=== PATIENT | male | born 1945 | race Caucasian/White ===

== ENCOUNTER → 2023-06-13 09:11 | Outpatient (REF) | payer MEDICARE, SELFPAY ==
[2023-06-13 10:00] LABS: % Basophils 0.7 % (0-2); % Eosinophils 1.7 % (0-6); % Immature Granulocytes 0.6 % (0-0.5); % Lymphocytes 45.9 % (20.5-51.1); % Monocytes 6.9 % (1.7-9.3); % Neutrophils 44.2 % (42.2-75.2); Absolute Basophils 0.1 10^3/uL (0-0.2); Absolute Eosinophils 0.2 10^3/uL (0-0.7); Absolute Immature Granulocytes 0.1 10^3/uL (0-0.05); Absolute Lymphocytes 4.1 10^3/uL (1.2-3.4); Absolute Monocytes 0.6 10^3/uL (0.1-0.6); Absolute Neutrophils 3.9 10^3/uL (1.4-6.5); Hematocrit 31.8 % (39.0-52.0); Hemoglobin 10.2 g/dL (13.0-18.0); Mean Corp Hgb Conc. 32.1 g/dL (33.0-37.0); Mean Corpuscular Hgb 29.7 pg (27.0-31.0); Mean Corpuscular Volume 92.4 fL (80.0-94.0); Mean Platelet Volume 10.8 fL (7.4-10.4); Nucleated Red Blood Cells % 0 % (-); Platelet Count 179 10^3/uL (130-400); Red Blood Cell Count 3.44 10^6/uL (4.70-6.10); Red Cell Dist. Width 13.9 % (11.5-14.5); White Blood Cell Count 8.9 10^3/uL (4.8-10.8)
[2023-06-13 10:30] LABS: Blood Urea Nitrogen 52 mg/dl (9-20); Calcium 9.7 mg/dl (8.4-10.2); Carbon Dioxide 17 mmol/L (22-30); Chloride 115 mmol/L (98-107); Glucose 108 mg/dl (70-99); Potassium 5.5 mmol/L (3.5-5.1); Sodium 140 mmol/L (135-145); eGFR 21.87
== END ==
LOC: REG 09:11
PROVIDERS: ATTENDING PHYSICIAN Specialist; FAMILY PHYSICIAN Physician Assistant
DX: Z01.818 Encounter for other preprocedural examination (principal)
CPT/HCPCS: 36415; 80048; 85025; 93005

== ENCOUNTER → 2023-06-22 08:39 | Outpatient (REF) | payer MEDICARE, SELFPAY | LOC: RAD 08:39 | PROVIDERS: ATTENDING PHYSICIAN Specialist; FAMILY PHYSICIAN Physician Assistant | DX: N18.4 Chronic kidney disease, stage 4 (severe) (principal) | CPT/HCPCS: 76775 ==

== ENCOUNTER 2023-07-10 06:11 | Day surgery (SDC) | payer MEDICARE, SELFPAY ==
--- NOTE | 2023-07-04 13:36 | CM ---
Patient is scheduled for an elective L THR on 07/10/23- he is a same day patient. Spoke with patient prior to surgery. Introduced role of Orthopedic Navigator. Patient reports that he lives alone. He currently functions independently and uses a cane.
He also has a raised toilet seat, hip kit, firm cushion and rolling walker. He has never had VN services. PCP is Kurt Moore.
Discussed orthopedic program and post surgical plans. Reviewed that he will have VN services initially (medicare.gov website and ratings reviewed) and will then start outpatient PT. Patient selects [facility] (face sheet faxed to [facility] to facilitate
confirmation of benefits) for his home care needs and will go to [facility] for outpatient PT.
Patient is in agreement with plan and states that he will go to his friend, Sima Schmitz's home initially (home is two story with one step to enter and a flight of steps to the second floor).
Patient will complete online education.
Plan: Orthopedic Navigator will remain available to assist with the care of patient and will reassess discharge needs after surgery.
[2023-07-05 13:56] VITALS: BMI 24.4
[2023-07-05 14:17] VITALS: BMI 24.4
[2023-07-05 14:30] LABS: Hematocrit 30.5 % (39.0-52.0); Mean Corp Hgb Conc. 32.8 g/dL (33.0-37.0); Mean Corpuscular Hgb 29.8 pg (27.0-31.0); Mean Corpuscular Volume 90.8 fL (80.0-94.0); Mean Platelet Volume 10.7 fL (7.4-10.4); Platelet Count 170 10^3/uL (130-400); Red Blood Cell Count 3.36 10^6/uL (4.70-6.10); Red Cell Dist. Width 13.9 % (11.5-14.5); White Blood Cell Count 7.9 10^3/uL (4.8-10.8)
[2023-07-05 14:44] LABS: ALT (SGPT) 13 U/L (0-50); AST (SGOT) 16 U/L (17-59); Albumin 4.1 g/dl (3.5-5.0); Alkaline Phosphatase 51 U/L (38-126); Blood Urea Nitrogen 47 mg/dl (9-20); Calcium 9.2 mg/dl (8.4-10.2); Carbon Dioxide 20 mmol/L (22-30); Chloride 112 mmol/L (98-107); Estimated Creatinine Clearance 28 ml/min; Glucose 135 mg/dl (70-99); Potassium 4.6 mmol/L (3.5-5.1); Sodium 139 mmol/L (135-145); Total Bilirubin 0.5 mg/dl (0.2-1.3); Total Protein 6.5 g/dl (6.3-8.2); eGFR 26.14
[2023-07-05 14:54] LABS: Glycohemoglobin (HgbA1c) 6.1 % (4.0-5.6)
--- NOTE | 2023-07-06 10:57 | HPS.HSE ---
Family Physician
-
Family Physician: LUBNA Mixon
Chief Complaint
-
Advanced osteoarthritis of the left hip.
History of Present Illness
77 yo male end stage O/A of the left hip that has failed conservative treatment
measures. He has attempted extensive modalities including
intra-articular injection, self-directed exercise, weight loss,
activity modification, ice and heat. NSAIDs are contraindicated due
to stage 4 kidney disease. Imaging performed reveals advanced
tanp-st-clio arthritis requiring surgical intervention. He
currently denies chest pain, shortness of breath, fever, chills,
nausea, vomiting, or diarrhea.
Medical History
Past Medical History
Past Medical History: Reports Other (see below)
Additional Past Medical History:
CKD 4
HTN
NIDDM
Anemia
Past Surgical History: Reports Other (see below)
Additional Past Surgical History:
L TKA
R TKA
GB
L shoulder
Social History
Tobacco: Non-smoker
Family History
Family History: Not pertinent
Allergies / Home Medications
Allergies reflects when Allergies were last updated in [facility].
Home Medications with original date entered in [facility]
Allergy/Medication List:
ALLERGY
NKDA
MEDICATIONS:
Atorvastatin Calcium 20 MG Tablet 1 tablet Orally Once a daydexAMETHasone 4 MG Tablet 1 tablet Orally every 12 hrs, Notes: for surgeryHibiclens(Chlorhexidine Gluconate) 4 % Liquid Wash Head to Toe Externally Daily x 3 days before surgery, stop date
08/28/2023, Notes: prior to surgeryJanuvia(SITagliptin Phosphate) 25 MG Tablet 1 tablet Oral Once a dayoxyCODONE HCl 5 MG Tablet 1-2 tablets as needed Orally every 6 hrs, Notes: after surgeryoxyCODONE HCl 5 MG Tablet 1-2 tablet as needed Orally
every 4-6 hrs, Notes: Supervising Mustapha padron [id number] HCl 50 MG Tablet 1-2 tablet as needed Orally every 4-6 hrs, Notes: PRN
Review of Systems
-
A 12 point ROS was completed and negative except as noted: Yes
Physical Exam
Physical Exam
General: Well Developed and Well Nourished
HEENT: NormoCephalic
Respiratory: Clear
Cardiac: S1/S2 and Regular Rhythm
GI: Soft, Non Tender and Normal Bowel Sounds
Musculoskeletal: Other (Right hip:������ No pain with internal rotation to 20 degrees, external rotation to 20 degrees, abduction to 30 degrees and flexion to 110 degrees.)
Skin: Warm and Dry
Neuro: Awake, AO x 3 and Cranial Nerves Intact
Laboratory Results
-
07/05/23 13:53
07/05/23 13:53
Laboratory Results
Total Bilirubin 0.5 mg/dl (0.2-1.3) 07/05/23 13:53
AST 16 U/L (17-59) L 07/05/23 13:53
ALT 13 U/L (0-50) 07/05/23 13:53
Alkaline Phosphatase 51 U/L (38-126) 07/05/23 13:53
Impression/Plan
-
IMPRESSION/PLAN:
1. L CYNTHIA.
2. DVT Prophylaxis-ASA+ SCD
[2023-07-10] VITALS (12 sets, daily range): BP systolic 103–149; BP diastolic 53–74; PULSE 69; O2SAT 99; BMI 24.4
[2023-07-10 06:30] LABS: Glucose - Point of Care 108 mg/dl (70-99)
[2023-07-10] MEDS: CELEBREX 200 MG PO (06:38)
[2023-07-10] MEDS: TYLENOL 650 MG PO (06:38)
[2023-07-10] MEDS: NORMOSOL-R 1000 IV (06:39)
[2023-07-10 08:48] LABS: Glucose - Point of Care 149 mg/dl (70-99)
[2023-07-10] MEDS: ROXICODONE 5 MG PO (09:46)
--- NOTE | 2023-07-10 10:16 | CM ---
Patient had planned L THR today. Met with patient and his friend at bedside to review discharge plans. Patient will be returning home today with services through [facility]. On Monday, 07/13, patient will start outpatient PT at [facility]. Reviewed
MD follow up in two weeks and patient has already scheduled his appointment.
Patient has his rolling walker here with him.
PT and VN were kept updated as to progress and discharge plans.
[2023-07-10] MEDS: ANCEF 5 IV (10:49)
== END 2023-07-10 12:06 | disposition home health service (06) ==
LOC: SDS 06:11
PROVIDERS: ATTENDING PHYSICIAN Specialist; FAMILY PHYSICIAN Physician Assistant; OTHER PHYSICIAN Physician Assistant Medical; OTHER PHYSICIAN Specialist
DX: M16.12 Unilateral primary osteoarthritis, left hip (principal)
CPT/HCPCS: 27130; C1776; 36415; 73502; 80053; 82962; 83036; 85027; 86850; 86900; 86901; 86920; 87070; 97116; 97161

== ENCOUNTER → 2023-08-24 13:15 | Outpatient (REF) | payer MEDICARE, SELFPAY | LOC: HWRAD 13:15 | PROVIDERS: ATTENDING PHYSICIAN Specialist; FAMILY PHYSICIAN Physician Assistant; REFERRING PHYSICIAN Specialist | DX: N18.4 Chronic kidney disease, stage 4 (severe) (principal) | CPT/HCPCS: 76775 ==

== ENCOUNTER 2023-12-27 17:23 | Inpatient (IN) | payer MEDICARE, SELFPAY ==
[2023-12-27] VITALS (13 sets, daily range): BP systolic 95–132; BP diastolic 58–73; BMI 25.4
[2023-12-27] MEDS: NSS 1000 IV ×2 (13:04→17:33)
[2023-12-27] MEDS: TYLENOL 1000 MG PO (13:04)
--- NOTE | 2023-12-27 13:04 | ED.GENMED ---
History of Present Illness
<Cherrie Velez PA-C - Last Filed: 12/27/23 20:26>
General
Chief Complaint: Male Genito-Urinary Symptoms
Source: patient
Exam Limitations: none
Time Seen by Provider: 12/27/23 12:22
Nursing documentation reviewed up to this point in time: agreed with
History of Present Illness
History of Present Illness:
Patient is a 78-year-old male with history diabetes, stage IV kidney disease, BPH presenting to the emergency department for evaluation of hematuria and bodyaches. Patient states that this morning he noticed some bleeding from his penis and had a
few episodes of hematuria. Patient states that shortly after he had full body aches and chills. Overall patient states he feels weak. Patient denies any chest pain, shortness of breath, or abdominal pain. Patient denies any known fever, cough,
or congestion. No known sick contacts.
Patient occasionally self catheterizes due to prostatic hypertrophy. He did contact his urologist, Dr. Clemons this morning who recommended evaluation in the emergency department.
Past History
<Cherrie Velez PA-C - Last Filed: 12/27/23 20:26>
Past History
ED Past Medical History: Hypercholesterolemia and NIDDM
ED Past Surgical History: Orthopedic (left knee replacement (01-09-12))
Social History
Tobacco: Non-smoker
Alcohol: None
Drug: None
Personal:
Living: with family
Review of Systems
<Cherrie Velez PA-C - Last Filed: 12/27/23 20:26>
Review of Systems
Allergies reviewed?: Yes
All Other Systems: ROS reviewed and negative except as documented in HPI and ROS
Phy Exam
<Cherrie Velez PA-C - Last Filed: 12/27/23 20:26>
Physical Exam
Physical Exam:
Vitals: Vital signs stable. Temp of 100.5. Nontoxic-appearing
General: Patient is in no apparent distress.
Skin: Warm and dry, no rashes or lesions
Head: Normocephalic, atraumatic
Eyes: Sclera nonicteric. EOMs intact. No nystagmus.
Throat: Protecting airway
Neck: Normal ROM, no cervical spine tenderness, no meningismus
Cardiac: Regular rate and rhythm, no murmurs.
Pulm: Normal respiratory effort, no wheezes, rales, rhonchi heard on exam.
Abdomen: Abdomen soft. No abdominal tenderness. No CVA tenderness.
Extremities: No evidence of cyanosis or edema. Great distal pulses
Neuro: AAOx3. CN II-XII intact. No focal neurologic deficits.
Psychiatric: Normal affect.
Course
<Cherrie Velez PA-C - Last Filed: 12/27/23 20:26>
Orders/Labs/Results
Orders:
Orders
12/27/23 12:48
0.9% Sodium Chloride 1000 ml [Nss] 1,000 ml IV BOLUS
Acetaminophen [Tylenol] 1,000 mg PO NOW STA
12/27/23 12:49
Acetaminophen [Tylenol] 1,000 mg .ROUTE .STK-MED ONE
12/27/23 12:53
COVID-19 Antigen Urgent
Source: Nasal Swab
Complete Blood Count/With Diff Urgent
Comprehensive Metabolic Panel Urgent
Lactic Acid Q4H
Comment: CANCEL 2nd LACTIC ACID IF 1st LACTIC ACID IS LESS THAN 2
Influenza A+B Rapid Molecular Urgent
[facility] Source: Nasal Swab
Specimen Description:
12/27/23 13:08
Urinalysis Reflex To Culture Urgent
Date Specimen was Collected: 12/27/23
Time Specimen was Collected: 13:03
Urine Microscopic Reflex Cult Urgent
Urine Culture Urgent
[facility] Source: U
Specimen Description:
Date Specimen was Collected: 12/27/23
Time Specimen was Collected: 13:03
12/27/23 13:22
US Kidneys [US Renal Only W/O Bladder] Urgent
Comment:
Reason For Exam: hematuria, febrile
12/27/23 13:49
Add On- LAB Urgent
Tests Added?: blood culture
12/27/23 14:29
Blood Culture Urgent
[facility] Source: Blood/Venous
Specimen Description:
12/27/23 14:58
CefTRIAXone [Rocephin] 2,000 mg IV NOW STA
12/27/23 Dinner
Regular
At Your Request: Full Participation
12/27/23 15:34
Sterile Water [Sterile Water For Injection] 20 ml .ROUTE .STK-MED
12/27/23 17:11
Code Status As Directed
Resuscitation Status: Do not resuscitate
Reached after discussion with pt or family/Healthcare POA: Yes
Acetaminophen [Tylenol] 650 mg PO Q4HPRN PRN
Bisacodyl [Dulcolax] 10 mg RECTAL [id number] PRN
Docusate W/Senna [Senokot-S] 1 tablet PO BIDPRN PRN
Polyethylene Glycol Powder [Miralax] 17 grams PO DAILYPRN PRN
Activity As Directed
Activity Level: Ambulate
DNR Bracelet Application ONCE
Intake/ Output As Directed
Frequency: Per unit guidelines
Vital Signs As Directed
Frequency: Per unit guidelines
Weight As Directed
Frequency: Daily
DX Deep Vein Thrombosis Video Routine
12/27/23 17:15
0.9% Sodium Chloride 1000 ml [Nss] 1,000 ml IV 125 mls/hr
12/27/23 17:16
Admit/Transfer Patient As Directed
Co-Sign Provider:
Level of Care: Inpatient admission
Assign to:: Medical/Surgical
Physician / Group: hospitalist
Diagnosis: sepsis
Reason for Hospitalization: Sepsis requiring IV abx
Expected length of stay greater than two midnights?: Yes
ELOS- Estimated Length of Stay in days: 3
I certify the patient meets the requirements for IP care: Yes
PRN Pain Medication Management As Directed
May give lesser potent ordered pain med per pt: Yes
preference::
Protocol:: Medication orders for pain may be administered in a
manner that supports deferring to patient preference
when the pt is:
-Requesting an ordered lesser potent pain medication.
Least to most potent pain medications are defined as:
acetaminophen < NSAID < tramadol < opioids (morphine,
oxycodone, hydromorphone).
- Requesting a lesser dose of the same medication IF
ORDERED.
- Requesting a less intrusive route of administration
if both routes are prescribed by the provider (PO <
IV).
12/27/23 20:00
Sodium Bicarbonate 650 mg PO BID
12/28/23 00:00
Heparin 5,000 units SC Q8
12/28/23 06:00
Complete Blood Count/With Diff IN AM
Comprehensive Metabolic Panel IN AM
12/28/23 08:00
Amlodipine [Norvasc] 5 mg PO DAILY
Atorvastatin [Lipitor] 20 mg PO DAILY
Cholecalciferol (Vitamin D3) [VITAMIN D3 (cholecalciferol)] 25 mcg PO DAILY
Cyanocobalamin [Vitamin B-12] 500 mcg PO DAILY
Finasteride [Proscar] 5 mg PO DAILY
Sitagliptin Phosphate [Januvia] 25 mg PO DAILY
Tamsulosin [Flomax] 0.4 mg PO DAILY
12/28/23 16:00
CefTRIAXone [Rocephin] 1,000 mg IV Q24H
Abnormal Lab Results
12/27/23 12/27/23
12:53 13:08
WBC 13.1 H 10^3/uL
(4.8-10.8)
RBC 4.04 L 10^6/uL
(4.70-6.10)
Hgb 11.3 L g/dL
(13.0-18.0)
Hct 34.0 L %
(39.0-52.0)
RDW 15.8 H %
(11.5-14.5)
Abs Immat Gran (auto) 0.1 H 10^3/uL
(0-0.05)
Absolute Neuts (auto) 10.1 H 10^3/uL
(1.4-6.5)
Neutrophils % 76.4 H %
(42.2-75.2)
Chloride 108 H mmol/L
(98-107)
Carbon Dioxide 17 L mmol/L
(22-30)
BUN 48 H mg/dl
(9-20)
Creatinine 2.6 H mg/dL
(0.7-1.3)
Glucose 146 H mg/dl
(70-99)
Ur Occult Blood Reflex 4+ A
(Negative)
Urine Nitrite (Reflex) Positive A
(Negative)
Leukocyte Esterase Rfl 2+ A
(Negative)
Urine RBC 16-20 A /HPF
(0-2)
Urine WBC (Reflex) 60-70 A /HPF
(0-5)
Urine Bacteria (Reflex) Many A
(Negative)
Urine Glucose 3+ A
(Negative)
12/27/23 12:53
12/27/23 12:53
Vital Signs
Initial and Last Documented VS:
Initial Vital Signs
Temp Pulse Resp BP Pulse Ox
98.6 F 91 18 110/59 100
12/27/23 11:54 12/27/23 11:54 12/27/23 11:54 12/27/23 11:54 12/27/23 11:54
Last Documented Vital Signs
Temp Pulse Resp BP Pulse Ox
97.9 F 82 20 124/58 97
12/27/23 19:35 12/27/23 19:35 12/27/23 19:35 12/27/23 19:35 12/27/23 19:35
<Echo Foreman MD - Last Filed: 12/27/23 13:56>
Orders/Labs/Results
Orders:
Orders
12/27/23 12:48
0.9% Sodium Chloride 1000 ml [Nss] 1,000 ml IV BOLUS
Acetaminophen [Tylenol] 1,000 mg PO NOW STA
12/27/23 12:49
Acetaminophen [Tylenol] 1,000 mg .ROUTE .STK-MED ONE
12/27/23 12:53
COVID-19 Antigen Urgent
Source: Nasal Swab
Complete Blood Count/With Diff Urgent
Comprehensive Metabolic Panel Urgent
Lactic Acid Q4H
Comment: CANCEL 2nd LACTIC ACID IF 1st LACTIC ACID IS LESS THAN 2
Influenza A+B Rapid Molecular Urgent
[facility] Source: Nasal Swab
Specimen Description:
12/27/23 13:08
Urinalysis Reflex To Culture Urgent
Date Specimen was Collected: 12/27/23
Time Specimen was Collected: 13:03
Urine Microscopic Reflex Cult Urgent
Urine Culture Urgent
[facility] Source: U
Specimen Description:
Date Specimen was Collected: 12/27/23
Time Specimen was Collected: 13:03
12/27/23 13:22
US Kidneys [US Renal Only W/O Bladder] Urgent
Comment:
Reason For Exam: hematuria, febrile
12/27/23 13:49
Add On- LAB Urgent
Tests Added?: blood culture
12/27/23 14:29
Blood Culture Urgent
[facility] Source: Blood/Venous
Specimen Description:
12/27/23 14:58
CefTRIAXone [Rocephin] 2,000 mg IV NOW STA
12/27/23 Dinner
Regular
At Your Request: Full Participation
12/27/23 15:34
Sterile Water [Sterile Water For Injection] 20 ml .ROUTE .STK-MED
12/27/23 17:11
Code Status As Directed
Resuscitation Status: Do not resuscitate
Reached after discussion with pt or family/Healthcare POA: Yes
Acetaminophen [Tylenol] 650 mg PO Q4HPRN PRN
Bisacodyl [Dulcolax] 10 mg RECTAL [id number] PRN
Docusate W/Senna [Senokot-S] 1 tablet PO BIDPRN PRN
Polyethylene Glycol Powder [Miralax] 17 grams PO DAILYPRN PRN
Activity As Directed
Activity Level: Ambulate
DNR Bracelet Application ONCE
Intake/ Output As Directed
Frequency: Per unit guidelines
Vital Signs As Directed
Frequency: Per unit guidelines
Weight As Directed
Frequency: Daily
DX Deep Vein Thrombosis Video Routine
12/27/23 17:15
0.9% Sodium Chloride 1000 ml [Nss] 1,000 ml IV 125 mls/hr
12/27/23 17:16
Admit/Transfer Patient As Directed
Co-Sign Provider:
Level of Care: Inpatient admission
Assign to:: Medical/Surgical
Physician / Group: hospitalist
Diagnosis: sepsis
Reason for Hospitalization: Sepsis requiring IV abx
Expected length of stay greater than two midnights?: Yes
ELOS- Estimated Length of Stay in days: 3
I certify the patient meets the requirements for IP care: Yes
PRN Pain Medication Management As Directed
May give lesser potent ordered pain med per pt: Yes
preference::
Protocol:: Medication orders for pain may be administered in a
manner that supports deferring to patient preference
when the pt is:
-Requesting an ordered lesser potent pain medication.
Least to most potent pain medications are defined as:
acetaminophen < NSAID < tramadol < opioids (morphine,
oxycodone, hydromorphone).
- Requesting a lesser dose of the same medication IF
ORDERED.
- Requesting a less intrusive route of administration
if both routes are prescribed by the provider (PO <
IV).
12/27/23 20:00
Sodium Bicarbonate 650 mg PO BID
12/28/23 00:00
Heparin 5,000 units SC Q8
12/28/23 06:00
Complete Blood Count/With Diff IN AM
Comprehensive Metabolic Panel IN AM
12/28/23 08:00
Amlodipine [Norvasc] 5 mg PO DAILY
Atorvastatin [Lipitor] 20 mg PO DAILY
Cholecalciferol (Vitamin D3) [VITAMIN D3 (cholecalciferol)] 25 mcg PO DAILY
Cyanocobalamin [Vitamin B-12] 500 mcg PO DAILY
Finasteride [Proscar] 5 mg PO DAILY
Sitagliptin Phosphate [Januvia] 25 mg PO DAILY
Tamsulosin [Flomax] 0.4 mg PO DAILY
12/28/23 16:00
CefTRIAXone [Rocephin] 1,000 mg IV Q24H
Abnormal Lab Results
12/27/23 12/27/23
12:53 13:08
WBC 13.1 H 10^3/uL
(4.8-10.8)
RBC 4.04 L 10^6/uL
(4.70-6.10)
Hgb 11.3 L g/dL
(13.0-18.0)
Hct 34.0 L %
(39.0-52.0)
RDW 15.8 H %
(11.5-14.5)
Abs Immat Gran (auto) 0.1 H 10^3/uL
(0-0.05)
Absolute Neuts (auto) 10.1 H 10^3/uL
(1.4-6.5)
Neutrophils % 76.4 H %
(42.2-75.2)
Chloride 108 H mmol/L
(98-107)
Carbon Dioxide 17 L mmol/L
(22-30)
BUN 48 H mg/dl
(9-20)
Creatinine 2.6 H mg/dL
(0.7-1.3)
Glucose 146 H mg/dl
(70-99)
Ur Occult Blood Reflex 4+ A
(Negative)
Urine Nitrite (Reflex) Positive A
(Negative)
Leukocyte Esterase Rfl 2+ A
(Negative)
Urine RBC 16-20 A /HPF
(0-2)
Urine WBC (Reflex) 60-70 A /HPF
(0-5)
Urine Bacteria (Reflex) Many A
(Negative)
Urine Glucose 3+ A
(Negative)
12/27/23 12:53
12/27/23 12:53
Vital Signs
Initial and Last Documented VS:
Initial Vital Signs
Temp Pulse Resp BP Pulse Ox
98.6 F 91 18 110/59 100
12/27/23 11:54 12/27/23 11:54 12/27/23 11:54 12/27/23 11:54 12/27/23 11:54
Last Documented Vital Signs
Temp Pulse Resp BP Pulse Ox
97.9 F 82 20 124/58 97
12/27/23 19:35 12/27/23 19:35 12/27/23 19:35 12/27/23 19:35 12/27/23 19:35
<Cherrie Velez PA-C - Last Filed: 12/27/23 20:26>
MDM/Problems Addressed
Differential Diagnosis Includes:
Not limited to: UTI, hemorrhagic cystitis, kidney stone, pyelonephritis, viral illness including COVID/flu, bacteremia, etc.
MDM/Problems Addressed:
78-year-old male presenting with hematuria and fatigue. Patient did report body aches, chills, low-grade temp this morning. No dysuria. Patient does intermittently self cath at home. Sent by urology for eval. Vital stable on arrival. Temp of
100.5 on arrival. Did give gram of Tylenol. Exam as above. Mildly fatigued appearing, although otherwise nontoxic. Abdomen soft and nontender. Cardio/pulmonary assessment unremarkable. Differential diagnosis include UTI, pyelonephritis,
urinary obstruction, bacteremia. Will check labs, urine, renal ultrasound to rule out obstruction. Will send blood cultures. Will give IV fluids will check viral swabs to rule out other causes of bodyaches, fever. Anticipate admission.
Update: Labs reviewed. Mild leukocytosis of 13.1. Chronic renal insufficiency noted which appears stable. Urine does appear infected. Ultrasound negative for any obstructive process. Viral swabs negative. Given evidence of UTI with systemic
symptoms including fever, body aches�concern for pyelonephritis. Will give dose of IV Rocephin. Patient admitted to hospitalist service in stable condition. Urology aware. Patient seen with attending physician
Chronic conditions affecting care:
CKD
Acute Exacerbation and/or Progression of Chronic Illness:
Acute UTI
<Cherrie Velez PA-C - Last Filed: 12/27/23 20:26>
*Radiology
Radiology exam reviewed: radiology read reviewed (No evidence of obstruction)
*Pulse Oximetry
Patient hypoxic: no
*EKG
Interpreted by ED Provider?: NA
*Fast Food Shift Lead Interpretation
Rate: [employer] Shift Lead- N/A
*Critical Care Note
Total Time (30-74mins, 75-104mins- exclusive of procedures): Not Applicable
<Cherrie Velez PA-C - Last Filed: 12/27/23 20:26>
Patient Management
Discussion with other providers: Hospitalist and Professor Of Psychology (Urology-Dr. Kym pelayo)
Escalation/DeEscalation of care consider admission/obs:
Admit for IV antibiotics, further monitor
ED Attending Note
<Cherrie Velez PA-C - Last Filed: 12/27/23 20:26>
-
Portions of this chart may have been created with voice recognition software.� Occasional wrong word or��sound alike� substitutions may have occurred due to the inherent limitations of voice recognition software.
<Echo Foreman MD - Last Filed: 12/27/23 13:56>
ED Attending Note
Patient seen and examined by attending physician: Yes
I performed the substantive portion of visit, reviewed & personally made and approve the management plan that is documented in note by myself or SELMA.: Yes
ED Attending Note:
78 yr old male with episode of 'flu like' body aches fever chills sweates rigors for about one hour this AM,now resolved. He is left with feeling very tired. He also notes hematuria that began this AM, does self cath.
On exam, overall tired but well appearing, oriented. Concern re:pyelo, r/o obstruction r/o bacteremia, likley admission.
Discharge Plan
Departure
Patient Disposition: Admit
Date of Disposition: 12/27/23
Time of Disposition: 15:03
Presentation/result/management discussed w/ accepting MD/DO: Hospitalist
Covid-19: Negative COVID-19
Discharge Problem:
Acute pyelonephritis
Interventions
Interventions:
*Risk Screen - Suicide Last Done: 12/27/23 19:50
*General Assessment Last Done: 12/27/23 12:51
*Neglect/Abuse Screening Last Done: 12/27/23 11:55
ED- Fall Risk Assessment Last Done: 12/27/23 12:51
*ED COVID-19 Vaccine History Last Done: 12/27/23 19:50
*Nursing Disposition Last Done: 12/27/23 19:06
ED-Male Genitourinary Assessment Last Done: 12/27/23 12:51
Discharge Date and Time
Discharge Date/Time: 12/27/23 19:26
[2023-12-27 13:14] LABS: % Basophils 0.4 % (0-2); % Eosinophils 0.1 % (0-6); % Immature Granulocytes 0.5 % (0-0.5); % Lymphocytes 20.8 % (20.5-51.1); % Monocytes 1.8 % (1.7-9.3); % Neutrophils 76.4 % (42.2-75.2); Absolute Basophils 0.1 10^3/uL (0-0.2); Absolute Immature Granulocytes 0.1 10^3/uL (0-0.05); Absolute Lymphocytes 2.7 10^3/uL (1.2-3.4); Absolute Monocytes 0.2 10^3/uL (0.1-0.6); Absolute Neutrophils 10.1 10^3/uL (1.4-6.5); Hemoglobin 11.3 g/dL (13.0-18.0); Mean Corp Hgb Conc. 33.2 g/dL (33.0-37.0); Mean Corpuscular Volume 84.2 fL (80.0-94.0); Mean Platelet Volume 9.9 fL (7.4-10.4); Nucleated Red Blood Cells % 0 % (-); Platelet Count 168 10^3/uL (130-400); Red Blood Cell Count 4.04 10^6/uL (4.70-6.10); Red Cell Dist. Width 15.8 % (11.5-14.5); White Blood Cell Count 13.1 10^3/uL (4.8-10.8)
[2023-12-27 13:21] LABS: Urine Albumin Trace (Neg - Trace); Urine Bilirubin Negative (Negative); Urine Color Yellow; Urine Glucose 3+ (Negative); Urine Ketone Negative (Negative); Urine Leukocyte 2+ (Negative); Urine Nitrite Positive (Negative); Urine Occult Blood 4+ (Negative); Urine Urobilinogen Negative (Neg - 1+)
[2023-12-27 13:25] LABS: Lactic Acid 1.2 mmol/L (0.7-2.0)
[2023-12-27 13:26] LABS: Urine Character Slightly Cloudy (Clear)
[2023-12-27 13:26] LABS: ALT (SGPT) 15 U/L (0-50); AST (SGOT) 18 U/L (17-59); Albumin 4.3 g/dl (3.5-5.0); Alkaline Phosphatase 40 U/L (38-126); Blood Urea Nitrogen 48 mg/dl (9-20); Calcium 9.4 mg/dl (8.4-10.2); Carbon Dioxide 17 mmol/L (22-30); Chloride 108 mmol/L (98-107); Glucose 146 mg/dl (70-99); Potassium 4.2 mmol/L (3.5-5.1); Sodium 139 mmol/L (135-145); Total Bilirubin 1.2 mg/dl (0.2-1.3); Total Protein 6.9 g/dl (6.3-8.2); eGFR 24.78
[2023-12-27 13:39] LABS: COVID-19 Antigen Negative (Negative)
[2023-12-27 14:06] LABS: Urine Red Blood Cell 16-20 /HPF (0-2)
[2023-12-27 14:07] LABS: Urine White Cell 60-70 /HPF (0-5)
[2023-12-27 14:08] LABS: Urine Bacteria Many (Negative)
[2023-12-27] MEDS: ROCEPHIN 2000 MG IV (15:37)
--- NOTE | 2023-12-27 17:40 | HPS.HSE ---
Addendum entered and electronically signed by Pb Agosto MD 12/27/23 22:28:
Attending Addendum-
I performed a history and physical exam of the patient and discussed his management with the resident. I reviewed the resident's note and agree with the documented findings and plan of care CC/HPI- Patient presents to ED secondaryt o hematuria with
clots and fevers/chills. Patient has been straight cathing s/p retention after Left hip arthroplasty in July. Seen with . Currently feels weak but improved s/p antibiotics. Full 12 point ROS reviewed and negative except as documented Exam- vitals
reviewed in EMR GEN-NAD heart RRR luns clear abd soft LE no edema non palp bladder no CVA tenderness
Plan:
# Sepsis secondary to UTI
- LA wnl
- start IVF
- cont abx- rocephin
- ua- pos await urine cx
- check blood cx
# Hematuria
- traumatic from SC
- place Peña for possible CBI
- uro c/s
- chck CBC in am
#Urinary retention/BPH
- place peña
- cont finasteride and flomax
# Chronic Metabolic Acidosis/CKD 4
- cr @ baseline 2.6
- avoid NT agents
- repeat BMP in am
# DM
- cont Jardiance and Farxiga
- check hba1c in am
# HTN
- cont amlodipine
# HLD
- cont atorvastatin
CODE- DNR/DNI
Dispo eventual DC home with
ACP
Patient consented to discuss, was with time spent explanation of advance directives, changes in health status, patient�s health care wishes if the patient becomes unable to make health decisions, goals of care, code status, and prognosis- 16
minutes
Time spent coordinating care, review of plan of care with resident, personally reviewed previous records in EMR, med rec, labs, radiology, d/w nursing, family, total time documented is exclusive of any additional time listed that was spent in
advance care planning discussion - 76 minutes
Original Note:
Family Physician
-
Family provider: LUBNA Mixon
Chief Complaint
-
Urinary tract infection with hematuria
History of Present Illness
78 male past medical history of CKD stage IV, diabetes not requiring insulin, BPH, hypertension. He presents for hematuria and bodyaches/chills of 1 day duration. He states feeling fatigue chills and bodyaches starting this morning. Patient self
caths approximately 3 times a day and states that when he woke up this morning he noticed that there was blood in his bed and he noticed blood while urinating. He describes it as small clots and princess blood in the urine. Patient called his
urologist Dr. Clemons, office staff recommended that he present to the emergency department. On presentation to the ED patient was noted to have low-grade fevers of 100.5, leukocytosis and urinalysis suggestive of urinary tract infection. In the
ED urine culture and blood cultures were sent, patient tested negative for flu and COVID. Patient received renal ultrasound which ruled out any urinary obstruction. He was started on IV antibiotics and received 1 dose of 2000 mg ceftriaxone IV.
Medical History
Past Medical History
Past Medical History: Reports HTN, NIDDM, Renal Failure (CKD stage IV) and Other (BPH)
Past Surgical History: Reports Orthopedic (Left hip replacement July 11, 2023, bilateral knee replacements right 1998, left 2011)
Social History
Tobacco: Non-smoker
Alcohol: Daily (1-2 drinks daily, approximately 12 ounce beers)
Drug: Marijuana (Occasional marijuana use)
Personal: Partner (Lives with a significant other)
Living: With Family
Employment: Retired (Worked in education)
Family History
Family History: Not pertinent and Diabetes
Allergies / Home Medications
Allergies reflects when Allergies were last updated in [facility].
Home Medications with original date entered in [facility]
Allergy/Medication List:
Allergies
Allergy/AdvReac Type Severity Reaction Status Date / Time
No Known Allergies Allergy Verified 12/27/23 11:57
Home Medications
atorvastatin 20 mg tablet 20 mg PO DAILY High Cholesterol 12/14/11
cholecalciferol (vitamin D3) 25 mcg (1,000 unit) tablet (Vitamin D3) 25 mcg PO DAILY Supplement 07/04/23
amlodipine 5 mg tablet 5 mg PO DAILY Blood Pressure 12/27/23
cyanocobalamin (vitamin B-12) 500 mcg tablet 500 mcg PO DAILY Supplement 12/27/23
dapagliflozin propanediol 10 mg tablet (Farxiga) 5 mg PO DAILY Diabetes 12/27/23
finasteride 5 mg tablet 5 mg PO DAILY Urinary Issue 12/27/23
sitagliptin phosphate 50 mg tablet (Januvia) 25 mg PO DAILY Diabetes 12/27/23
sodium bicarbonate 650 mg tablet 650 mg PO BID Supplement 12/27/23
tamsulosin 0.4 mg capsule 0.4 mg PO DAILY Urinary Issue 12/27/23
Review of Systems
-
History Source: Patient
A 12 point ROS was completed and negative except as noted: Yes
Constitutional: Reports Fever, Fatigue and Chills
Respiratory: Reports No Symptoms
Cardiac: Reports No Symptoms
Abdomen/GI: Reports Abdominal Pain
: Reports Difficulty Voiding and Bleeding; Denies Dysuria, Frequency, Flank Pain, Incontinence or Urgency
Physical Exam
Vital Signs
Vital Signs
Temp Pulse Resp BP Pulse Ox
99.0 F 75 18 114/61 98
12/27/23 16:00 12/27/23 17:30 12/27/23 17:30 12/27/23 17:30 12/27/23 16:00
Physical Exam
General: Well Developed, No Apparent Distress, Comfortable and Conversant
Respiratory: Crackles (Crackles in lower bases bilaterally)
Cardiac: S1/S2 and Regular Rhythm
GI: Soft, Non Distended, Normal Bowel Sounds and Tender (Tender below the umbilicus)
Genito-urinary: No costovertebral tender
Skin: Warm and Dry
Neuro: Awake, Alert, Oriented and AO x 3
Psych: Calm and Intact Judgment/Insight
Laboratory Results
-
12/27/23 12:53
12/27/23 12:53
Laboratory Results
Lactic Acid Cancelled 12/27/23 17:00
Total Bilirubin 1.2 mg/dl (0.2-1.3) 12/27/23 12:53
AST 18 U/L (17-59) 12/27/23 12:53
ALT 15 U/L (0-50) 12/27/23 12:53
Alkaline Phosphatase 40 U/L (38-126) 12/27/23 12:53
Data Reviewed
-
Ultrasound: Report Reviewed by me and Discussed with Physician
Lab Data: Labs Reviewed by me and Discussed with Physician
Impression/Plan
-
IMPRESSION:
78-year-old male past medical history of CKD stage IV, diabetes not requiring insulin and BPH presents for hematuria and found to have signs of UTI.
PLAN:
#Sepsis
#Pyelonephritis/UTI
Patient meets SIRS criteria as he is febrile and has elevated white blood cell count with a source
Sepsis is secondary to pyelonephritis/UTI
patient endorses chills and fatigue and hematuria, CVA tenderness negative
Urinalysis demonstrated positive nitrites, +2 leukocyte esterase, 60-70 white blood cells, many bacteria
Unsure if hematuria is secondary to infection or traumatic from straight caths
Lactic acid within normal limit
Patient received 2000 mg IV Rocephin in ED
Start patient on 1000 mg IV Rocephin daily
Started patient on continuous IV fluids 125 mL/h normal saline
Urine cultures pending, adjust antibiotics based on culture and sensitivity
Blood cultures drawn and pending
#Chronic kidney disease stage IV
Creatinine 2.6 on admission
Patient states baseline is between 2.5 and 2.8
Will continue IV fluids at 125 mL/h continuous NSS
Will continue patient's home vitamin B12 and vitamin D
Daily CMP
#BPH
Patient takes finasteride and tamsulosin at home
Patient intermittently straight caths approximately 3 times per day
Continue home finasteride and tamsulosin
Will initiate Peña for first 24 to 48 hours per urology recommendation as patient has a complicated UTI
Will consider transitioning to straight caths afterward
#Anemia
Hemoglobin on admission 11.3
Patient's baseline is reportedly around 10
Likely anemia of chronic disease secondary to chronic kidney disease
Daily CBC with differential
#Metabolic acidosis
CO2 on admission 17
Patient chronically acidotic and was started on daily bicarb by nephrology
Continue bicarb twice a day p.o.
#Diabetes mellitus not requiring insulin
Patient takes Farxiga and Januvia at home
Hold Farxiga in setting of UTI
Continue Januvia
#Hypertension
Continue home amlodipine
CODE STATUS: DNR/DNI
DVT prophylaxis: Subcu heparin 5000 every 8 hours
Diet: Regular
[2023-12-27] MEDS: SODIUM BICARBONATE 650 MG PO (20:02)
[2023-12-28] MEDS: NSS 1000 IV ×3 (01:25→16:11)
[2023-12-28 07:17] LABS: % Basophils 0.4 % (0-2); % Eosinophils 0.7 % (0-6); % Immature Granulocytes 0.7 % (0-0.5); % Lymphocytes 21.3 % (20.5-51.1); % Monocytes 5.6 % (1.7-9.3); % Neutrophils 71.3 % (42.2-75.2); Absolute Basophils 0.1 10^3/uL (0-0.2); Absolute Eosinophils 0.1 10^3/uL (0-0.7); Absolute Immature Granulocytes 0.1 10^3/uL (0-0.05); Absolute Lymphocytes 3.3 10^3/uL (1.2-3.4); Absolute Monocytes 0.9 10^3/uL (0.1-0.6); Absolute Neutrophils 10.9 10^3/uL (1.4-6.5); Hematocrit 29.7 % (39.0-52.0); Hemoglobin 9.8 g/dL (13.0-18.0); Mean Corpuscular Volume 84.9 fL (80.0-94.0); Mean Platelet Volume 11.1 fL (7.4-10.4); Nucleated Red Blood Cells % 0 % (-); Platelet Count 142 10^3/uL (130-400); Red Cell Dist. Width 16.1 % (11.5-14.5); White Blood Cell Count 15.3 10^3/uL (4.8-10.8)
[2023-12-28 07:47] VITALS: BP 101/67
[2023-12-28 07:49] LABS: ALT (SGPT) 13 U/L (0-50); AST (SGOT) 14 U/L (17-59); Albumin 3.4 g/dl (3.5-5.0); Alkaline Phosphatase 38 U/L (38-126); Blood Urea Nitrogen 38 mg/dl (9-20); Calcium 8.5 mg/dl (8.4-10.2); Carbon Dioxide 17 mmol/L (22-30); Chloride 111 mmol/L (98-107); Estimated Creatinine Clearance 28 ml/min; Glucose 107 mg/dl (70-99); Potassium 4.2 mmol/L (3.5-5.1); Sodium 140 mmol/L (135-145); Total Bilirubin 0.8 mg/dl (0.2-1.3); Total Protein 5.8 g/dl (6.3-8.2); eGFR 27.28
[2023-12-28] MEDS: PROSCAR 5 MG PO (08:15)
[2023-12-28] MEDS: NORVASC 5 MG PO (08:15)
[2023-12-28] MEDS: VITAMIN D3 (cholecalciferol) 25 MCG PO (08:16)
[2023-12-28] MEDS: FLOMAX 0.4 MG PO (08:16)
[2023-12-28] MEDS: JANUVIA 25 MG PO (08:16)
[2023-12-28] MEDS: LIPITOR 20 MG PO (08:16)
[2023-12-28] MEDS: SODIUM BICARBONATE 650 MG PO ×2 (08:16→20:49)
[2023-12-28] MEDS: VITAMIN B-12 500 MCG PO (08:17)
[2023-12-28 08:52] LABS: Glycohemoglobin (HgbA1c) 6.4 % (4.0-5.6)
--- NOTE | 2023-12-28 09:03 | W.PN.HOSP.TC ---
Addendum entered and electronically signed by Pb Agosto MD 12/28/23 22:55:
Attending Addendum-I saw and evaluated the patient. I reviewed the resident�s note and agree with findings and plan as documented in the resident�s note. Sub: feels greatly improved. seen with . Still not back to baseline.. Full 12 point ROS
reviewed and negative except as documented Exam- vitals reviewed in EMR GEN-NAD heart RRR lungs clear abd soft LE no edema peña in palce draining clear yellow urine no CVA tenderness
Plan:
# Sepsis secondary to UTI
- worsening leukocytosis but sxs improving
- LA wnl
- cont IVF
- cont abx- rocephin day #2
- urine cx- GN bacilli await sensi
- blood cx- NGTD
# Hematuria
- resolved
- traumatic from SC
- cont Peña
- DC peña in am
- check CBC in am
#Urinary retention/BPH
- DC peña in am
- cont SC on DC
- cont finasteride and flomax
# Chronic Metabolic Acidosis/CKD 4
- cr @ baseline 2.6 now 2.4
- avoid NT agents
- cont bicarb (patient admits to noncompliance)
- repeat BMP in am
# DM
- cont Jardiance and Farxiga
- hba1c- 6.4!
- review accuchecks
# HTN
- cont amlodipine
# HLD
- cont atorvastatin
CODE- DNR/DNI
Dispo eventual DC home with
Time spent coordinating care, review of plan of care with resident, personally reviewed records in EMR, med rec, consults, notes, labs, radiology, d/w nursing and � 55 mins
Original Note:
Today's Communication/Plan
-
Continue Peña for today
Continue antibiotics
Continue IV fluid
Assessment / Plan
Assessment / Plan
IMPRESSION:
78-year-old male past medical history of CKD stage IV, diabetes not requiring insulin and BPH presents for hematuria and found to have signs of UTI.
PLAN:
#Sepsis
#Pyelonephritis/UTI
#Hematuria
Patient meets SIRS criteria as on admission he was febrile with elevated white blood cell count with a source
Sepsis is secondary to pyelonephritis/UTI
Chills fatigue and hematuria have resolved, CVA tenderness negative
Urinalysis demonstrated positive nitrites, +2 leukocyte esterase, 60-70 white blood cells, many bacteria
Urine cultures pending, adjust antibiotics based on culture and sensitivity
Hematuria is likely secondary to trauma from straight caths
Lactic acid within normal limit
IV Rocephin 1000 mg every 24 hours, day 2
Continue IV fluids 125 mL/h normal saline
Blood cultures drawn and pending
#Chronic kidney disease stage IV
Creatinine 2.6 on admission
Creatinine 2.4 today
Patient states baseline is between 2.5 and 2.8
Renewed IV fluids at 125 mL/h continuous NSS
continue patient's home vitamin B12 and vitamin D
Daily CMP
#BPH
Patient takes finasteride and tamsulosin at home
Patient intermittently straight caths approximately 3 times per day
Continue home finasteride and tamsulosin
Continue Peña for first 24 to 48 hours per urology recommendation as patient has a complicated UTI
D/c peña and transitioning to straight caths tomorrow morning
#Anemia
Hemoglobin on admission 11.3. Patient's baseline is reportedly around 10
Hemoglobin 9.8 this a.m.
Likely anemia of chronic disease secondary to chronic kidney disease
Daily CBC with differential
#Metabolic acidosis
CO2 on admission 17
Chronic
Continue bicarb twice a day p.o.
#Diabetes mellitus not requiring insulin
Patient takes Farxiga and Januvia at home
Hold Farxiga in setting of UTI
Glucose was within acceptable limits, less than 180 today
Continue Januvia
#Hypertension
Continue home amlodipine
CODE STATUS: DNR/DNI
DVT prophylaxis: Subcu heparin 5000 every 8 hours
Diet: Regular
Anticipated Discharge: 24 - 48 hours
Subjective/Interval History
-
Date of Service: December 28, 2023
No acute events overnight
Good drainage from Peña overnight
Objective Data
-
Labs:
Laboratory Results
12/28/23
06:44
WBC 15.3 H
Hgb 9.8 L
Hct 29.7 L
Plt Count 142
Sodium 140
Potassium 4.2
Chloride 111 H
Carbon Dioxide 17 L
BUN 38 H
Creatinine 2.4 H
Glucose 107 H
Calcium 8.5
Total Bilirubin 0.8
AST 14 L
ALT 13
Alkaline Phosphatase 38
Vital Signs:
Vital Signs
Temp Pulse Resp BP Pulse Ox
98.9 F 77 18 101/67 96
12/28/23 07:47 12/28/23 08:15 12/28/23 07:47 12/28/23 08:15 12/28/23 07:47
I&O
12/27/23 12/28/23 12/29/23
06:59 06:59 06:59
Intake Total 0 / 0
Output Total 1924
Balance -1924 / -1924
Review of Systems
-
History Source: Patient
Constitutional: Reports No Symptoms; Denies Fever or Chills
Respiratory: Reports No Symptoms
Cardiac: Reports No Symptoms
Abdomen/GI: Reports No Symptoms
Genitourinary: Reports No Symptoms; Denies Dysuria, Frequency, Flank Pain, Incontinence, Difficulty Voiding or Dark Urine
Physical Exam
-
General: Well Developed, Comfortable and Conversant
Respiratory: Crackles (Crackles in lower bases of lung)
Cardiac: Regular Rhythm and S1/S2
GI: Soft, Nontender, Nondistended and Normal Bowel Sounds
Genito-urinary: No Costovertebral Tender and Clear Urine
Skin: Warm and Dry
Neuro: Awake, Alert, Oriented and AO x 3
Psych: Calm and Intact Judgement/Insight
Data Reviewed
-
Labs: Labs Reviewed by me and Discussed with Physician
--- NOTE | 2023-12-28 10:16 | CM ---
CM following re: discharge planning.
Reviewed pt's chart, met with pt.
Pt is a 78 year old male, admitted with primary dx of UTI.
Pt reports he lives with a girlfriend in a [place], 3 steps to enter, has 2 supportive sons: one lives nearby and another lives in [facility]. Pt described himself as independent in all areas [employer]. No DME, VN or SNF history.
PCP: Kurt Moore
Pharmacy: [facility].
D/C plan: home with anticipated no needs. Family to transport at discharge.
CM will follow with discharge plan updates as hospitalization progresses
[2023-12-28 13:59] VITALS: BMI 25.4
[2023-12-28 15:42] VITALS: BP 127/65
[2023-12-28] MEDS: STERILE WATER FOR INJECTION 10 ML IV (15:53)
[2023-12-28] MEDS: ROCEPHIN 1000 MG IV (15:54)
[2023-12-28 23:00] VITALS: BP 123/64
[2023-12-29] MEDS: NSS 1000 IV (02:29)
[2023-12-29 07:40] LABS: Hematocrit 31.9 % (39.0-52.0); Hemoglobin 10.5 g/dL (13.0-18.0); Mean Corp Hgb Conc. 32.9 g/dL (33.0-37.0); Mean Corpuscular Hgb 28.9 pg (27.0-31.0); Mean Corpuscular Volume 87.9 fL (80.0-94.0); Mean Platelet Volume 10.8 fL (7.4-10.4); Platelet Count 140 10^3/uL (130-400); Red Blood Cell Count 3.63 10^6/uL (4.70-6.10); Red Cell Dist. Width 15.9 % (11.5-14.5)
[2023-12-29 07:48] VITALS: BP 143/76
[2023-12-29 07:48] LABS: ALT (SGPT) 14 U/L (0-50); AST (SGOT) 15 U/L (17-59); Albumin 3.5 g/dl (3.5-5.0); Alkaline Phosphatase 38 U/L (38-126); Blood Urea Nitrogen 39 mg/dl (9-20); Carbon Dioxide 16 mmol/L (22-30); Chloride 115 mmol/L (98-107); Estimated Creatinine Clearance 29 ml/min; Glucose 111 mg/dl (70-99); Potassium 4.4 mmol/L (3.5-5.1); Sodium 142 mmol/L (135-145); Total Bilirubin 0.4 mg/dl (0.2-1.3); Total Protein 5.9 g/dl (6.3-8.2); eGFR 28.71
[2023-12-29] MEDS: NORVASC 5 MG PO (08:46)
[2023-12-29] MEDS: VITAMIN B-12 500 MCG PO (08:46)
[2023-12-29] MEDS: SODIUM BICARBONATE 650 MG PO (08:46)
[2023-12-29] MEDS: VITAMIN D3 (cholecalciferol) 25 MCG PO (08:46)
[2023-12-29] MEDS: JANUVIA 25 MG PO (08:46)
[2023-12-29] MEDS: FLOMAX 0.4 MG PO (08:46)
[2023-12-29] MEDS: PROSCAR 5 MG PO (08:46)
[2023-12-29] MEDS: LIPITOR 20 MG PO (08:47)
--- NOTE | 2023-12-29 09:56 | W.PN.HOSP.TC ---
Addendum entered and electronically signed by Pb Agosto MD 12/29/23 22:35:
Attending Addendum-I saw and evaluated the patient. I reviewed the resident�s note and agree with findings and plan as documented in the resident�s note. Sub: feels great. Peña dc'd no urinary complaints. urinating on own. seen with . Full 12
point ROS reviewed and negative except as documented Exam- vitals reviewed in EMR GEN-NAD heart RRR lungs clear abd soft LE no edema -NPB no CVA tenderness
Plan:
# Sepsis secondary to UTI
- leukocytosis resolved
- LA wnl
- transition to PO abx
- urine cx- ecoli
- blood cx- NGTD
# Hematuria
- resolved
- traumatic from SC
- peña dc'd cont SC at home
#Urinary retention/BPH
- DC peña
- cont SC on DC
- cont finasteride and flomax
# Chronic Metabolic Acidosis/CKD 4
- cr @ baseline 2.6
- avoid NT agents
- cont bicarb (patient admits to noncompliance)
# DM
- cont Jardiance and Farxiga
- hba1c- 6.4!
# HTN
- cont amlodipine
# HLD
- cont atorvastatin
CODE- DNR/DNI
Dispo-DC home with
Time spent coordinating care, DC planning, review of DC plan of care with resident, transition of care, review of records, med rec/scripts sent electronically, consults, notes, d/w consultants, nursing, , and CM� 35 mins
Original Note:
Today's Communication/Plan
-
Discharge home on oral antibiotics
Assessment / Plan
Assessment / Plan
IMPRESSION:
78-year-old male past medical history of CKD stage IV, diabetes not requiring insulin and BPH presents for hematuria and found to have signs of UTI.
PLAN:
#Sepsis
#Pyelonephritis/UTI
#Hematuria
Patient meets SIRS criteria as on admission he was febrile with elevated white blood cell count with a source
Sepsis is secondary to pyelonephritis/UTI
Chills fatigue and hematuria have resolved, CVA tenderness negative
Urinalysis demonstrated positive nitrites, +2 leukocyte esterase, 60-70 white blood cells, many bacteria
Urine cultures returned with E. coli, sensitive to most antibiotics
Will plan to discharge patient on 7-day course of amoxicillin clavulanic acid 875/125
Hematuria is likely secondary to trauma from straight caths
Lactic acid within normal limit
IV Rocephin 1000 mg every 24 hours, day 3
IV fluids discontinued
Blood cultures negative
#Chronic kidney disease stage IV
Creatinine 2.6 on admission
Creatinine 2.3 today
Patient states baseline is between 2.5 and 2.8
Discontinue IV fluids
continue patient's home vitamin B12 and vitamin D
Daily CMP
#BPH
Patient takes finasteride and tamsulosin at home
Patient intermittently straight caths approximately 3 times per day
Continue home finasteride and tamsulosin
Patient had a Peña for the first 24 to 48 hours
Peña was discontinued this morning and patient was transition to straight caths as needed
#Anemia
Hemoglobin on admission 11.3. Patient's baseline is reportedly around 10
Hemoglobin 9.8 this a.m.
Likely anemia of chronic disease secondary to chronic kidney disease
Daily CBC with differential
#Metabolic acidosis
CO2 on admission 17
Chronic
Continue bicarb twice a day p.o.
#Diabetes mellitus not requiring insulin
Patient takes Farxiga and Januvia at home
Hold Farxiga in setting of UTI
Glucose was within acceptable limits, less than 180 today
Continue Januvia
#Hypertension
Continue home amlodipine
CODE STATUS: DNR/DNI
DVT prophylaxis: Subcu heparin 5000 every 8 hours
Diet: Regular
Anticipated Discharge: Today
Subjective/Interval History
-
Date of Service: December 29, 2023
Patient reports difficulty sleeping overnight, otherwise no acute events
Objective Data
-
Labs:
Laboratory Results
12/29/23
06:53
WBC 10.0
Hgb 10.5 L
Hct 31.9 L
Plt Count 140
Sodium 142
Potassium 4.4
Chloride 115 H
Carbon Dioxide 16 L
BUN 39 H
Creatinine 2.3 H
Glucose 111 H
Calcium 9.0
Total Bilirubin 0.4
AST 15 L
ALT 14
Alkaline Phosphatase 38
Vital Signs:
Vital Signs
Temp Pulse Resp BP Pulse Ox
97.5 F 63 18 143/76 100
12/29/23 07:48 12/29/23 08:46 12/29/23 07:48 12/29/23 08:46 12/29/23 07:48
I&O
12/28/23 12/29/23 12/30/23
06:59 06:59 06:59
Intake Total 0 / 0 2220 / 2220
Output Total 1924 / 1924 4001 / 4001
Balance -1924 / -1924 -1780 / -1780
Review of Systems
-
History Source: Patient
Respiratory: Reports No Symptoms
Cardiac: Reports No Symptoms
Abdomen/GI: Reports No Symptoms
Genitourinary: Reports No Symptoms
Physical Exam
-
General: Well Developed, No Apparent Distress, Comfortable and Conversant
Respiratory: Clear to Auscultation
Cardiac: Regular Rhythm and S1/S2
GI: Soft, Nontender, Nondistended and Normal Bowel Sounds
Genito-urinary: No Costovertebral Tender and Clear Urine; Negative Peña
Musculoskeletal: No Edema
Skin: Warm and Dry
Neuro: Awake, Alert, Oriented and AO x 3
Psych: Calm and Intact Judgement/Insight
Data Reviewed
-
Labs: Labs Reviewed by me and Discussed with Physician
[2023-12-29] MEDS: NSS IV (10:23)
--- NOTE | 2023-12-29 12:27 | PTCARENOTE ---
Reviewed discharge instructions with patient and . Patient and both verbalize understanding of instructions and deny questions. Peripheral IV removed. Patient left via wheelchair with staff escort. to transport home.
[2023-12-29 13:23] VITALS: BP 140/70
--- NOTE | 2023-12-29 13:29 | W.DCSUMMARY ---
Addendum entered and electronically signed by Pb Agosto MD 12/29/23 22:35:
Read, reviewed, and agree. See same day progress note for additional details.
Reji Agosto MD
Original Note:
Documented by User: Ulisses Alford DO, Resident 12/29/23 13:37
Discharge Summary
Discharge Data
Date of Admission: 12/27/23
Date of Discharge: 12/29/23
-
Pending Results: No
Hospital Course
Discharging Physician : Surendra Alford
Disposition : Home
Primary care physician : Dr. Kurt Moore
Principal Discharge diagnosis : Sepsis/urinary tract infection
Chronic Discharge diagnosis : Hematuria, chronic kidney disease stage IV, benign prostatic hyperplasia, hypertension, metabolic acidosis, diabetes mellitus not requiring insulin
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 Patient self caths approximate 3 times a day and states when he woke up he
noticed there was blood in his bed and blood will urinating. Patient follows urologist Dr. Clemons, his office recommended patient present to emergency department. On presentation to ED patient had low-grade fevers 100.5 leukocytosis and
urinalysis suggestive of urinary tract infection. In ED urine culture and blood cultures were collected and sent, patient tested negative for flu and COVID. Patient received renal ultrasound which ruled out any urinary obstruction. He was started
on IV Rocephin and admitted. Patient received 3 days total of IV Rocephin 1000 mg IV. Patient was started on a Foreman to drain his urine for the first 24 to 48 hours afterwards he was transition to self straight caths. His urine culture resulted
in E. coli which was sensitive to Rocephin and many antibiotics. Blood cultures resulted in no growth. Patient reports resolution of symptoms, no more urinary symptoms and he was discharged home with an oral course of Augmentin 875/125 for 7 days.
Patient received a total of 10 days of antibiotics in total. Patient was discharged home and will follow-up with his primary care physician and with urology.
Important imaging findings :
12/27/2023 renal ultrasound, findings:
No evidence of renal collecting system dilatation bilaterally. Confirmation of bilateral ureteral jets.
Findings suggesting some bilateral chronic medical renal disease.
Small simple right renal cyst.
Small volume layering urinary bladder debris.
Procedure findings :
Urine culture, conclusions
Urine Culture Final 12/29/23
CC: Greater than 100,000 CFU/ML Escherichia coli
Organism 1 Escherichia coli
1. Escherichia coli
M.I.C. RX
--------- ---
Amoxicillin/Potas. Clavulanate <=8/4 S
Ampicillin >16 R
Ampicillin/Sulbactam 8/4 S
Aztreonam <=4 S
Cefazolin <=2 S
Ertapenem <=0.5 S
Ciprofloxacin <=0.25 S
Gentamicin <=2 S
Meropenem <=1 S
Nitrofurantoin-Urine Only <=32 S
Piperacillin/Tazobactam <=8 S
Tetracycline <=4 S
Tobramycin <=2 S
Trimethoprim/Sulfamethoxazole <=2/38 S
Discharge Plan
-
Patient Disposition: Home (Routine Discharge)
Discharge Diagnosis/Procedures: Sepsis secondary to UTI/pyelonephritis
Condition: Good
Diet: Diabetic, Carb Controlled
Activity: As tolerated
Driving Restrictions: As prior to admission
Bathing Restrictions: None
Activity Restrictions/Additional Instructions:
Please follow-up with your primary care provider in less than 1 week of discharge
Please follow-up with your urologist Dr. Clemons in 2 to 3 weeks to discuss definitive management of BPH
Referrals:
Kurt Moore PA [Family Provider] - in less than 1 week
Liam Clemons MD [Active] - in two to three weeks
Additional Discharge Medication Instructions: Please take amoxicillin/clavulanic acid twice a day by mouth for 7 days total
Prescriptions:
New
amoxicillin-pot clavulanate 875-125 mg tablet
1 tab PO BID 7 Days Qty: 14 0RF
Continued
atorvastatin 20 MG tablet
20 mg PO DAILY
cholecalciferol (vitamin D3) [Vitamin D3] 25 mcg (1,000 unit) Tablet
25 mcg PO DAILY
cyanocobalamin (vitamin B-12) 500 mcg Tablet
500 mcg PO DAILY
tamsulosin 0.4 mg Capsule
0.4 mg PO DAILY
sodium bicarbonate 650 mg Tablet
650 mg PO BID
finasteride 5 mg Tablet
5 mg PO DAILY
Januvia 50 mg Tablet
25 mg PO DAILY
dapagliflozin propanediol [Farxiga] 10 mg Tablet
5 mg PO DAILY
amlodipine 5 mg tablet
5 mg PO DAILY
Discharge Orders:
Discharge Patient (As Directed); Ordered 12/29/23
Ordered By: Ulisses Alford
Discharge Date and Time
Discharge Date/Time: 12/29/23 13:21
Print Language: ECUADOREAN

Documented by User: Pb Agosto MD 12/29/23 22:31
Discharge Summary
Discharge Data
Date of Admission: 12/27/23
Date of Discharge: 12/29/23
Discharge Plan
-
Patient Disposition: Home (Routine Discharge)
Discharge Diagnosis/Procedures: Sepsis secondary to UTI/pyelonephritis
Condition: Good
Diet: Diabetic, Carb Controlled
Activity: As tolerated
Driving Restrictions: As prior to admission
Bathing Restrictions: None
Activity Restrictions/Additional Instructions:
Please follow-up with your primary care provider in less than 1 week of discharge
Please follow-up with your urologist Dr. Clemons in 2 to 3 weeks to discuss definitive management of BPH
Referrals:
Kurt Moore PA [Family Provider] - in less than 1 week
Liam Clemons MD [Active] - in two to three weeks
Additional Discharge Medication Instructions: Please take amoxicillin/clavulanic acid twice a day by mouth for 7 days total
Prescriptions:
New
amoxicillin-pot clavulanate 875-125 mg tablet
1 tab PO BID 7 Days Qty: 14 0RF
Continued
atorvastatin 20 MG tablet
20 mg PO DAILY
cholecalciferol (vitamin D3) [Vitamin D3] 25 mcg (1,000 unit) Tablet
25 mcg PO DAILY
cyanocobalamin (vitamin B-12) 500 mcg Tablet
500 mcg PO DAILY
tamsulosin 0.4 mg Capsule
0.4 mg PO DAILY
sodium bicarbonate 650 mg Tablet
650 mg PO BID
finasteride 5 mg Tablet
5 mg PO DAILY
Januvia 50 mg Tablet
25 mg PO DAILY
dapagliflozin propanediol [Farxiga] 10 mg Tablet
5 mg PO DAILY
amlodipine 5 mg tablet
5 mg PO DAILY
Discharge Orders:
Discharge Patient (As Directed); Ordered 12/29/23
Ordered By: Ulisses Alford
Discharge Date and Time
Discharge Date/Time: 12/29/23 13:21
Print Language: ECUADOREAN
--- NOTE | 2023-12-29 16:52 | CM ---
Spoke with patient who was preparing for discharge. The patient says he feels ready for discharge home today. IMM completed by phone- copy mailed to him as he was unwilling to wait for CM to meet with him, per nurse. His SO Sima will drive him
home.
No CM d/c needs identified.
Plan home today.
--- NOTE | 2024-01-01 11:08 | PN.CDI ---
CDI
- -
CDI:
Physician Documentation Request
Admit Date: 12/27/23 17:23
Dear Doctor Prashanth
Patient admitted for sepsis secondary to UTI.
H&P states 'Patient has been straight cathing s/p retention after left hip arthroplasty in
Please clarify if a relationship exist between these conditions:
Yes, UTI is related to/associated with/due to/urinary straight cath.
No, UTI is not related to/associated with/due to/straight cath
Unable to determine
Use of terms such as suspected, likely, concern for, or probable (associated with a specific diagnosis that is being evaluated, monitored, or treated as if it exists) are acceptable and can be coded in the inpatient setting, when documented at the
time of discharge.
Thank you,
Kia Chang RN, BSN
CDI Specialist
tiger text
Please use your independent medical judgment in providing your response.
--- NOTE | 2024-01-01 14:39 | W.PN.UPDATE ---
Update Note
Progress Note Update
#CDI query
Patient has been straight cathing intermittently
Unable to determine if straight cath were responsible for UTI or if it secondary to retention from BPH
== END 2023-12-29 13:21 | disposition home or self-care (01) | DRG 872 ==
LOC: 4 EAST ACU 17:23
PROVIDERS: Physician Assistant; ADMITTING PHYSICIAN Family Medicine; EMERGENCY PHYSICIAN Emergency Medicine; FAMILY PHYSICIAN Physician Assistant
DX: A41.51 Sepsis due to Escherichia coli [E. coli] (principal); N39.0 Urinary tract infection, site not specified; E87.22 Chronic metabolic acidosis; N18.4 Chronic kidney disease, stage 4 (severe); N10 Acute pyelonephritis; R31.9 Hematuria, unspecified; E11.22 Type 2 diabetes mellitus with diabetic chronic kidney disease; N40.1 Benign prostatic hyperplasia with lower urinary tract symptoms; E78.00 Pure hypercholesterolemia, unspecified; N28.1 Cyst of kidney, acquired; Z66 Do not resuscitate; R33.8 Other retention of urine; I12.9 Hypertensive chronic kidney disease with stage 1 through stage 4 chronic kidney disease, or unspecified chronic kidney disease; D63.1 Anemia in chronic kidney disease; Z96.642 Presence of left artificial hip joint; Z96.653 Presence of artificial knee joint, bilateral; Z91.148 Patient's other noncompliance with medication regimen for other reason
CPT/HCPCS: 76775; 80053; 81003; 81015; 83036; 83605; 85025; 85027; 87040; 87077; 87086; 87186; 87502; 87811; 96361; 96374; 99284

== ENCOUNTER → 2024-01-18 09:31 | Outpatient (REF) | payer MEDICARE, SELFPAY | LOC: SDSPAT 09:31 | PROVIDERS: ATTENDING PHYSICIAN Specialist; FAMILY PHYSICIAN Physician Assistant; OTHER PHYSICIAN Specialist | DX: N40.1 Benign prostatic hyperplasia with lower urinary tract symptoms (principal) | CPT/HCPCS: 36415; 93005 ==

== ENCOUNTER 2024-01-25 09:49 | Inpatient (IN) | payer MEDICARE, SELFPAY ==
[2024-01-18 10:44] VITALS: BMI 24.4
[2024-01-25] VITALS (16 sets, daily range): BP systolic 124–166; BP diastolic 64–90; BMI 24.4
[2024-01-25 07:52] LABS: Glucose - Point of Care 124 mg/dl (70-99)
--- NOTE | 2024-01-25 09:39 | W.PN.URO.CBU ---
Today's Communication / Plan
-
conyinue cbi hand irriergate q shift and prn major clots
Assessment / Plan
-
admit pos top cg=bi iv abs analgesics and hgb checks
Diagnosis
-
Date of Service: January 25, 2024
-
Patient Diagnosis:bph retemntion s/p turp
Post Op Day:
Subjective
-
cath discomfort hematuira
Objective
-
Vital Signs
Temp Pulse Resp BP Pulse Ox
98.3 F 72 16 161/87 99
01/25/24 07:45 01/25/24 07:45 01/25/24 07:45 01/25/24 07:45 01/25/24 07:45
Review of Systems
-
: Dark Urine
Physical Exam
-
General - well developed, well nourished, no acute distressnon toxic stable
Chest - clear bilaterally
Abdomen - soft, non-tender, positive bowel sounds, no CVAT, no incisional pain or distention
Genitalia - normal
Rectal - normal
Skin - warm & dry with no rash
Neuro - AOx3, no motor deficits
Extremities - no clubbing, no cyanosis, no edema
Incision - clean, dry
Dressing - clean, dry, intact
Care Review
Data Reviewed
Discussed with: Nursing and Family
[2024-01-25 09:47] LABS: Glucose - Point of Care 117 mg/dl (70-99)
[2024-01-25] MEDS: DETROL LA 4 MG PO (09:57)
[2024-01-25] MEDS: LR 1000 IV ×2 (10:59→22:50)
[2024-01-25] MEDS: COLACE PO (13:57)
--- NOTE | 2024-01-25 14:01 | PTCARENOTE ---
Received patient from PACU via bed around 1305 in stable condition. CBI infusing. [address] way catheter with light pink urine. Patient oriented to room. Denies pain. Call walters in reach.
--- NOTE | 2024-01-25 15:36 | CM ---
Reviewed the chart notes and spoke with the patient at the bedside. The patient resides with his friend Sima in a two story home with three steps to enter. The patient reports no DME/SNF in the past, but has had VN. The patient could not recall
the name of the agency. The patient confirmed his pharmacy of choice is the [facility]. The patient is currently CBI running. CM continues to be available to patient/family and is monitoring medical plan for needs at discharge.
Plan: Discharge plans will depend on the patient's chart.
[2024-01-25] MEDS: COLACE 100 MG PO (16:56)
[2024-01-25] MEDS: SODIUM BICARBONATE 650 MG PO (20:07)
[2024-01-26 03:13] VITALS: BP 152/69
[2024-01-26 05:58] LABS: Hematocrit 32.3 % (39.0-52.0); Hemoglobin 10.4 g/dL (13.0-18.0)
[2024-01-26 07:20] VITALS: BP 149/76
[2024-01-26] MEDS: SODIUM BICARBONATE 650 MG PO ×2 (08:08→19:23)
[2024-01-26] MEDS: VITAMIN B-12 500 MCG PO (08:08)
[2024-01-26] MEDS: JANUVIA 25 MG PO (08:08)
[2024-01-26] MEDS: FLOMAX 0.4 MG PO (08:08)
[2024-01-26] MEDS: FARXIGA 5 MG PO (08:08)
[2024-01-26] MEDS: PROSCAR 5 MG PO (08:09)
[2024-01-26] MEDS: NORVASC 5 MG PO (08:09)
[2024-01-26] MEDS: COLACE 100 MG PO ×3 (08:09→16:26)
[2024-01-26] MEDS: VITAMIN D3 (cholecalciferol) 25 MCG PO (08:09)
[2024-01-26] MEDS: LIPITOR PO (08:14)
[2024-01-26 11:26] VITALS: BP 139/72
--- NOTE | 2024-01-26 13:22 | W.PN.URO.CBU ---
Today's Communication / Plan
-
hl iv s]disconnect cbi and if stable remove peña 0600 sat
Assessment / Plan
-
admit pos top cg=bi iv abs analgesics and hgb check stgbalr manasa hold cbnbi and ivf peña out am if no major clots today
Diagnosis
-
Date of Service: January 26, 2024
-
Patient Diagnosis:
Post Op Day:
Patient Diagnosis:bph retemntion s/p turp
Post Op Day:
Subjective
-
mild hematuria
Objective
-
Vital Signs
Temp Pulse Resp BP Pulse Ox
98.2 F 80 16 139/72 96
01/26/24 11:26 01/26/24 11:26 01/26/24 11:26 01/26/24 11:26 01/26/24 11:26
Intake and Output
01/25/24 01/26/24 01/27/24
06:59 06:59 06:59
Intake Total 580 / 580
Output Total 5200 / 5200
Balance -4620 / -4620
Intake:
Oral fluids 480 / 480
IV fluids (Total) 100 / 100
normal saline 100 / 100
Output:
True Urine Output from CBI 5200 / 5200
Laboratory Results
01/26/24 04:44
Review of Systems
-
: Dark Urine
Physical Exam
-
General - well developed, well nourished, no acute distress
Chest - clear bilaterally
Abdomen - soft, non-tender, positive bowel sounds, no CVAT, no incisional pain or distention
Genitalia - normal
Rectal - normal
Skin - warm & dry with no rash
Neuro - AOx3, no motor deficits
Extremities - no clubbing, no cyanosis, no edema
Incision - clean, dry
Dressing - clean, dry, intact
Care Review
Data Reviewed
Discussed with: Nursing and Family
--- NOTE | 2024-01-26 13:34 | PTCARENOTE ---
CBI discontinued per order. Care remains ongoing.
--- NOTE | 2024-01-26 14:04 | CM ---
Addendum entered by Roseanna Soriano RN 01/26/24 15:57:
Spoke with the patient at the bedside. IMM reviewed and placed on chart.
Original Note:
Reviewed the chart notes. Patient's CBI stopped. Peña to be removed tomorrow. CM continues to be available to patient/family and is monitoring medical plan for needs at discharge.
Plan: Discharge plans will depend on the patient's progress. If discharged with peña might need VN.
[2024-01-26 15:20] VITALS: BP 146/72
[2024-01-26 23:20] VITALS: BP 150/75
[2024-01-27 01:41] LABS: ALT (SGPT) 15 U/L (0-50); AST (SGOT) 17 U/L (17-59); Albumin 3.7 g/dl (3.5-5.0); Alkaline Phosphatase 42 U/L (38-126); Blood Urea Nitrogen 39 mg/dl (9-20); Calcium 9.1 mg/dl (8.4-10.2); Carbon Dioxide 19 mmol/L (22-30); Chloride 109 mmol/L (98-107); Estimated Creatinine Clearance 29 ml/min; Glucose 125 mg/dl (70-99); Potassium 3.9 mmol/L (3.5-5.1); Sodium 141 mmol/L (135-145); Total Bilirubin 0.7 mg/dl (0.2-1.3); Total Protein 6.4 g/dl (6.3-8.2); eGFR 27.28
--- NOTE | 2024-01-27 01:56 | W.PN.UPDATE ---
Update Note
Progress Note Update
CrCl is 29, Pharmacist recommended to lower Levaquin dose from 500 mg iv q24h to 250 mg iv q24.
[2024-01-27] MEDS: LEVAQUIN 50 IV (04:15)
--- NOTE | 2024-01-27 06:33 | PTCARENOTE ---
06:[address]ña pulled as per MD order. Urine in bag light pink, no clots. When peña pulled a quarter size clot drained with some bleeding however pt tolerated removal well minimal c/o of discomfort and education given.
[2024-01-27 06:48] LABS: Hematocrit 33.7 % (39.0-52.0); Hemoglobin 11.2 g/dL (13.0-18.0)
[2024-01-27] MEDS: COLACE 100 MG PO ×2 (07:07→11:18)
[2024-01-27 07:56] VITALS: BP 132/75
[2024-01-27] MEDS: VITAMIN B-12 500 MCG PO (08:22)
[2024-01-27] MEDS: FARXIGA 5 MG PO (08:22)
[2024-01-27] MEDS: SODIUM BICARBONATE 650 MG PO (08:23)
[2024-01-27] MEDS: FLOMAX 0.4 MG PO (08:23)
[2024-01-27] MEDS: LIPITOR 20 MG PO (08:23)
[2024-01-27] MEDS: PROSCAR 5 MG PO (08:23)
[2024-01-27] MEDS: JANUVIA 25 MG PO (08:23)
[2024-01-27] MEDS: VITAMIN D3 (cholecalciferol) 25 MCG PO (08:23)
[2024-01-27] MEDS: NORVASC 5 MG PO (08:23)
--- NOTE | 2024-01-27 11:34 | CM ---
Patient seen at bedside. Patient hoping for discharge. Patient IMM completed 01/25 and no plan for VN at this time. CM will continue to follow for discharge planning needs.
Plan; home with no needs anticipated.
[2024-01-27 12:36] VITALS: BP 113/64
== END 2024-01-27 12:52 | disposition home or self-care (01) | DRG 713 ==
LOC: 2 SOUTH 09:49
PROVIDERS: Nurse Practitioner Family; ADMITTING PHYSICIAN Specialist
PROC: 0VT08ZZ Resection of Prostate, Via Natural or Artificial Opening Endoscopic (ICD-10-PCS; 2024-01-25)
DX: N40.1 Benign prostatic hyperplasia with lower urinary tract symptoms (principal); N18.4 Chronic kidney disease, stage 4 (severe); E78.5 Hyperlipidemia, unspecified; I10 Essential (primary) hypertension; E11.9 Type 2 diabetes mellitus without complications; Z79.84 Long term (current) use of oral hypoglycemic drugs
CPT/HCPCS: 88305; 80053; 82962; 85014; 85018; J1580

== ENCOUNTER 2025-02-22 08:45 | Emergency (ER) | payer MEDICARE, SELFPAY ==
[2025-02-22 08:58] VITALS: BP 131/73
--- NOTE | 2025-02-22 10:53 | ED.GENMED ---
History of Present Illness
General
Chief Complaint: Skin Surface Trauma
Source: patient
Exam Limitations: none
Time Seen by Provider: 02/22/25 10:29
Nursing documentation reviewed up to this point in time: agreed with
History of Present Illness
History of Present Illness:
see MDM
Past History
Past History
ED Past Medical History: Hypercholesterolemia and NIDDM
ED Past Surgical History: Orthopedic (left knee replacement (01-09-12))
Social History
Tobacco: Non-smoker
Alcohol: None
Drug: None
Personal:
Living: with family
Review of Systems
Review of Systems
Allergies reviewed?: Yes
All Other Systems: Not applicable
Phy Exam
Physical Exam
Physical Exam:
see MDM
Course
Orders/Labs/Results
Orders:
Orders
02/22/25 09:03
CT Head W/o Iv Contrast Urgent
Comment:
Reason For Exam: fall, head injury
Vital Signs
Initial and Last Documented VS:
Initial Vital Signs
Temp Pulse Resp BP Pulse Ox
36.4 C 69 20 131/73 99
02/22/25 08:58 02/22/25 08:58 02/22/25 08:58 02/22/25 08:58 02/22/25 08:58
Last Documented Vital Signs
Temp Pulse Resp BP Pulse Ox
36.4 C 69 20 131/73 99
02/22/25 08:58 02/22/25 08:58 02/22/25 08:58 02/22/25 08:58 02/22/25 10:53
Procedures
Laceration Closure
Right Eye brow:
Status of Wound: clean
Size of Wound in cm: 6.5
Description of Wound Edges: sharp and flap-well vascularized
Preparation: cleaned with saline
Anesthesia: 1% Lidocaine with epi
Wound exploration: extensive cleaning of contaminated wound and explored to base- no FB
Type of Closure: single layer closure
Skin Closure Material: 6-0 nylon
Number of sutures: 10
MDM/Problems Addressed
Differential Diagnosis Includes:
See MDM
MDM/Problems Addressed:
Note:
CHIEF COMPLAINT(S)
Lacerations to the face resulting from a fall.
HISTORY OF PRESENT ILLNESS
The patient is a 79-year-old male who presented [place] [employer] [place] at approximately 12:30 AM. The patient tripped, landing on a concrete surface, and sustained facial lacerations. He denied loss
of consciousness and reported being able to get himself up after the fall. He also reported consuming alcohol earlier but did not feel intoxicated at the time of the fall. The patient experienced pain in his knee, described as minor, and did not
report any neck pain. pt thinks he got cut by his glasses.
The patient also reported some bruising but denied being on blood thinners. patient received a tetanus shot earlier this year.
PHYSICAL EXAM
GENERAL: Alert , in no apparent distress
HEAD: Right superior orbital laceration x 2, linear, parallel, one measuring 4 cm and 1 measuring 2-1/2 cm with soft tissue swelling and ecchymosis, the ecchymosis does extend to the right inferior orbital area but there is full opening of the eye,
EOMs intact
NECK: no midline tenderness, active ROM intact, no paraspinal muscle tenderness;
EYE: pupils equal and reactive, EOMs intact.
ENT: o/p clr, mmm. no hemotympanum
CARDIAC: Regular rate and rhythm, no edema
LUNGS: Clear breath sounds bilaterally, no acute respiratory distress, no wheezes/rales/rhonchi
ABDOMEN: Soft, without focal tenderness, no r/g, no cvat
NEUROLOGICAL: Alert and oriented, no focal neuro deficits, CN intact, 5/5 strength, sensation intact
SKIN: Warm and dry,
MUSCULOSKELETAL: No edema, well perfused.
PSYCH: Normal and appropriate interaction.
Nursing notes reviewed and vital signs reviewed.
PLAN
The plan is to clean and suture the facial lacerations. Local anesthesia with lidocaine will be administered before cleaning and suturing. The stitches are to remain in place for 5 to 7 days. The patient is advised to keep the sutures dry for the
first 24 hours. Follow-up for stitch removal could be arranged with the family doctor or at an urgent care facility.
DIFFERENTIAL DIAGNOSIS
The differential diagnosis includes, in no particular order and is not limited to:
1. Laceration due to traumatic fall.
2. Hematoma formation.
3. Facial contusion.
4. Knee contusion.
5. Soft tissue swelling.
6. Concussion, although not suspected given the lack of reported symptoms.
7. Subdural hematoma to be considered but ruled out initially by CT scan.
8. Closed head injury, if head impact was suspected.
9. Orbital fracture, ruled out by imaging.
10. Nasal fracture, although not evident on examination or imaging.
79-year-old male with history of hypertension high cholesterol not anticoagulated had a mechanical trip and early this morning around 12:30 AM and hit his face on the ground. He had no loss of consciousness was able to get himself back up. He has
2 lacerations to the right eyebrow region. He said there was a lot of blood which stopped overnight. He has some soft tissue swelling and bruising around his right eye today. He has a minimal headache and mild brain fogginess but no vomiting,
confusion, change in mental status, amnesia, neck pain etc. His neuroexam is intact. He does have ecchymosis and soft tissue swelling with laceration to his right eyebrow. CT head was negative for fracture. No acute injury.
Lacerations were irrigated and repaired with sutures, well-approximated. Tetanus is up-to-date
*Pulse Oximetry
SaO2: 99
Oxygen Mode of Delivery: Room air
Patient hypoxic: no (99)
*Critical Care Note
Total Time (30-74mins, 75-104mins- exclusive of procedures): Not Applicable
ED Attending Note
-
Portions of this chart may have been created with voice recognition software.� Occasional wrong word or��sound alike� substitutions may have occurred due to the inherent limitations of voice recognition software.
Discharge Plan
Departure
Patient Disposition: Home (Routine Discharge)
Date of Disposition: 02/22/25
Time of Disposition: 11:48
Patient with high blood pressure during this ER visit?: No
Condition: Fair
Covid-19: Not Applicable
Discharge Problem:
Minor head injury, Facial laceration, Contusion of orbit
Instructions: Laceration Repair With Stitches (DC), Minor head injury in adults - ED (DC)
Prescriptions:
No Action
atorvastatin 20 MG tablet
20 mg PO DAILY
cholecalciferol (vitamin D3) [Vitamin D3] 25 mcg (1,000 unit) Tablet
25 mcg PO DAILY
cyanocobalamin (vitamin B-12) 500 mcg Tablet
500 mcg PO DAILY
tamsulosin 0.4 mg Capsule
0.4 mg PO DAILY
sodium bicarbonate 650 mg Tablet
650 mg PO BID
finasteride 5 mg Tablet
5 mg PO DAILY
Januvia 50 mg Tablet
25 mg PO DAILY
dapagliflozin propanediol [Farxiga] 10 mg Tablet
5 mg PO DAILY
amlodipine 5 mg tablet
5 mg PO DAILY
sildenafil [Viagra] 25 mg Tablet
25 mg PO DAILY PRN (Reason: sex)
sulfamethoxazole-trimethoprim [Bactrim DS] 800-160 mg tablet
1 tab PO BID Qty: 10 0RF
Referrals:
Kurt Moore PA [Family Provider, Family Practice]
Activity Restrictions/Additional Instructions:
KEEP THE WOUND CLEAN AND DRY FOR 24 HOURS
AFTER THAT YOU CAN GET IT WET IN THE BATH/SHOWER ONCE A DAY AND MAKE SURE IT IS CLEAN AND THERE IS NO DRIED BLOOD ON THE STITCHES
APPLY NEOSPORIN AND A BANDAID
THE STITCHES NEED TO BE REMOVED IN ABOUT 5-7 DAYS, SEE YOUR DOCTOR FOR THIS.
THE LAST DAY BEFORE STITCHES OUT, NO OINTMENT, LEAVE OPEN TO AIR
WATCH FOR SIGNS OF INFECTION AND RETURN NEEDED FOR PAIN, SWELLING, REDNESS, DRAINAGE, BLEEDING.
Tylenol NEEDED FOR PAIN.
Your CAT scan was negative. He probably have a minor head injury and not likely a true concussion. Ice off-and-on to your face, Tylenol for headaches. Return for any worsening severe symptoms
Interventions
Interventions:
*General Assessment Last Done: 02/22/25 10:29
*Neglect/Abuse Screening Last Done: 02/22/25 10:29
*ED COVID-19 Vaccine History Last Done: 02/22/25 10:29
*ED Influenza Vaccine History Last Done: 02/22/25 10:29
[facility] Fall Risk Assessment Tool Last Done: 02/22/25 10:29
*Risk Screen - Suicide (C-SSRS) Last Done: 02/22/25 10:29
*Nursing Disposition Last Done: 02/22/25 11:59
ED-Skin Assessment Last Done: 02/22/25 10:29
Discharge Date and Time
Discharge Date/Time: 02/22/25 11:59
Print Language: [place] CITIZ[place]
== END 2025-02-22 11:59 | disposition home or self-care (01) ==
LOC: EMR 08:45
PROVIDERS: EMERGENCY PHYSICIAN Student in an Organized Health Care Education/Training Program; FAMILY PHYSICIAN Physician Assistant
DX: S01.111A Laceration without foreign body of right eyelid and periocular area, initial encounter (principal); W01.198A Fall on same level from slipping, tripping and stumbling with subsequent striking against other object, initial encounter; Y92.522 Railway station as the place of occurrence of the external cause; E11.9 Type 2 diabetes mellitus without complications; I10 Essential (primary) hypertension; E78.00 Pure hypercholesterolemia, unspecified; Z79.84 Long term (current) use of oral hypoglycemic drugs; Z96.652 Presence of left artificial knee joint
CPT/HCPCS: 99284; 12014; 70450